=== PATIENT | female | born 1950 | race Caucasian/White ===

== ENCOUNTER 2021-05-31 13:11 | Emergency (ER) | payer OTHER ==
[~2021-05-31 13:11] MED LIST: ALLEGRA ALLERG180 MG PO; ATENOLOL25 MG PO; AZITHROMYCIN250 MG PO; BAYER CHEWABLE81 MG PO; CEFDINIR300 MG PO; DULERA 100 MCG8.8 GM INH; FLONASE ALLER15.8 ML; LIPITOR 10MG TA10 MG PO; OS-CAL500 MG PO; SINGULAIR10 MG PO
[2021-05-31 14:50] LABS: CORONAVIRUS 2019 SARS-COV-2 NEGATIVE (NEGATIVE); INFLUENZA A NAA NEGATIVE (NEGATIVE)
[2021-05-31] MEDS ORDERED: PREDNISONE 20MG20 MG PO (15:14)
[2021-05-31] MEDS ORDERED: AZITHROMYCIN250 MG PO (15:14)
== END 2021-05-31 15:48 | disposition home or self-care (01) ==
LOC: FER 13:11
PROVIDERS: Internal Medicine
DX: J06.9 Acute upper respiratory infection, unspecified (principal); I10 Essential (primary) hypertension; Z20.822 Contact with and (suspected) exposure to COVID-19; Z88.0 Allergy status to penicillin; Z88.1 Allergy status to other antibiotic agents
CPT/HCPCS: 71045; J7512; U0002